=== PATIENT | male | born 1995 | race Two or more races ===

== ENCOUNTER 2022-12-21 06:30 | Emergency (ER) | payer SELFPAY ==
[2022-12-21] MEDS ORDERED: Tetracaine HCl/PF 0.5% 4 ML Bottle EYEBOTH ONE (06:53)
== END 2022-12-21 07:45 | disposition home or self-care (01) ==
LOC: MW.ED 06:30
DX: T15.02XA Foreign body in cornea, left eye, initial encounter (principal)
CPT/HCPCS: 65205; 65220; 99283; J3490